=== PATIENT | male | born 1970 | race African-American/Black ===

== ENCOUNTER 2021-09-13 21:38 | Emergency (ER) | payer OTHER ==
[2021-09-13 22:26] VITALS: BP 171/117
[2021-09-14] MEDS ORDERED: TETANUS,DIPH,PERTUSS(ACELL) VACCINE 0.5 ML SYRINGE IM ONE (04:33)
[2021-09-14] MEDS ORDERED: ACETAMINOPHEN 325 MG TAB PO ONE (04:33)
[2021-09-14] MEDS ORDERED: IBUPROFEN 600 MG TAB PO ONE (04:33)
[2021-09-14] MEDS ORDERED: LIDOCAINE (1%) 10 MG/1 ML VIAL 20 ML MDV INFILTRATI ONE (04:33)
--- NOTE | 2021-09-14 05:05 | Emergency Department Report ---
- General Chief Complaint: Wound/Laceration Stated Complaint: CUT ON NECK Source: patient Mode of arrival: Ambulatory Limitations: No Limitations - History of Present Illness Initial Comments: Patient is a 51-year-old [place] male with no past medical history who presents to the ED with complaint of acute onset persistent painful bleeding left lateral neck area after a sharp metallic object that he was working on hit him on the left lateral neck causing a puncture wound on the left lateral neck about 6 hours ago. Patient states that he is not up-to-date with his tetanus vaccinations. Patient states that the bleeding is well controlled at this time. Patient denies head injury, chest pain or shortness of breath, loss of consciousness, nausea and vomiting, change in vision, headache, numbness and tingling or weakness of upper and lower extremities bilaterally. -: hour(s) (6) Location: neck (left lateral neck laceration) Place: work Patient Tetanus UTD: No (Even during this visit) Context: accidental, sharp object use Associated Symptoms: pain. denies: loss of feeling/numbness, suspect foreign body present, unable to move injured part, weakness followed by dizziness, nausea/vomiting, fever - Related Data Previous Rx's Medication Instructions Recorded Last Taken Type Ibuprofen [Motrin] 600 mg PO Q8H PRN #30 tablet 09/14/21 Unknown Rx cephALEXin [Keflex] 500 mg PO Q8HR #30 cap 09/14/21 Unknown Rx Allergies Allergy/AdvReac Type Severity Reaction Status Date / Time No Known Allergies Allergy Verified 09/13/21 22:28 ED Review of Systems ROS: Stated complaint: CUT ON NECK Other details as noted in HPI Constitutional: denies: chills, fever Eyes: denies: eye pain, eye discharge, vision change ENT: denies: ear pain, throat pain Respiratory: denies: cough, shortness of breath, wheezing Cardiovascular: denies: chest pain, palpitations Endocrine: no symptoms reported Gastrointestinal: denies: abdominal pain, nausea, diarrhea Genitourinary: denies: urgency, dysuria Musculoskeletal: arthralgia (left lateral neck pain due to a bleeding laceration wound), myalgia. denies: back pain, joint swelling Skin: other (left lateral neck laceration wound). denies: rash, lesions Neurological: denies: headache, weakness, paresthesias Psychiatric: denies: anxiety, depression Hematological/Lymphatic: denies: easy bleeding, easy bruising ED Past Medical Hx - Medications Home Medications: Home Medications Medication Instructions Recorded Confirmed Last Taken Type Ibuprofen [Motrin] 600 mg PO Q8H PRN #30 tablet 09/14/21 Unknown Rx cephALEXin [Keflex] 500 mg PO Q8HR #30 cap 09/14/21 Unknown Rx ED Physical Exam - General Limitations: No Limitations General appearance: alert, in no apparent distress - Head Head exam: Present: atraumatic, normocephalic, normal inspection - Eye Eye exam: Present: normal appearance, PERRL, EOMI Pupils: Present: normal accommodation - ENT ENT exam: Present: normal exam, normal orophraynx, mucous membranes moist, TM's normal bilaterally, normal external ear exam - Neck Neck exam: Present: normal inspection, tenderness (palpable mild left lateral neck tenderness due to a bleeding 4 cm laceration wound), full ROM - Respiratory Respiratory exam: Present: normal lung sounds bilaterally. Absent: respiratory distress, wheezes, rhonchi, chest wall tenderness, accessory muscle use, decreased breath sounds - Cardiovascular Cardiovascular Exam: Present: regular rate, normal rhythm, normal heart sounds. Absent: systolic murmur, diastolic murmur, rubs, gallop - GI/Abdominal GI/Abdominal exam: Present: soft, normal bowel sounds. Absent: tenderness, guarding, rebound, hyperactive bowel sounds, hypoactive bowel sounds, organomegaly, mass - Extremities Exam Extremities exam: Present: normal inspection, full ROM, normal capillary refill. Absent: tenderness - Back Exam Back exam: Present: normal inspection, full ROM. Absent: tenderness, CVA tenderness (R), CVA tenderness (L), muscle spasm, paraspinal tenderness, vertebral tenderness - Neurological Exam Neurological exam: Present: alert, oriented X3, CN II-XII intact, normal gait, reflexes normal - Psychiatric Psychiatric exam: Present: normal affect, normal mood - Skin Skin exam: Present: warm, dry, intact, normal color, other (bleeding 4 cm left lateral neck laceration wound). Absent: rash ED Course Vital Signs 09/13/21 22:00 Temperature 98.1 F Pulse Rate 78 Respiratory 20 Rate Blood Pressure 171/117 O2 Sat by Pulse 99 Oximetry - Laceration /Wound Repair Left Lateral Neck Wound Location: neck (left lateral) Wound Length (cm): 4 Wound's Depth, Shape: superficial, linear Wound Explored: contaminated Irrigated w/ Saline (ccs): 300 Betadine Prep?: Yes Anesthesia: 1% Lidocaine Volume Anesthetic (ccs): 5 Wound Debrided: extensive Wound Repaired With: sutures Suture Size/Type: 3:0, proline Number of Sutures: 7 Layer Closure?: No Sterile Dressing Applied?: No Progress: The wound was cleaned extensively and cleaned and debrided with normal saline and Betadine solution. 1% lidocaine solution was used as a local anesthetic. When anesthesia was fully achieved, the wound was sutured per protocol and the patient tolerated the procedure well. The wound was then dressed with a sterile 4 x 4 gauze and was discharged home on antibiotics and pain medications and advised to return to the ED in 12 to 14 days for suture removal. Patient was otherwise advised return to the ED immediately if symptoms get worse ED Medical Decision Making - Medical Decision Making This is a 51-year-old [place] male with no past medical history who presents to the ED with complaint of acute onset persistent painful bleeding left lateral neck area after a sharp metallic object that he was working on hit him on the left lateral neck causing a puncture wound on the left lateral neck about 6 hours ago. Patient states that he is not up-to-date with his tetanus vaccinations. Patient states that the bleeding is well controlled at this time. In the ED, patient is alert and oriented x3 and is not in any distress. Patient was treated for pain in the ED. Patient also received booster tetanus vaccination. The wound was extensively debrided with normal saline and sutured per protocol. Patient tolerated the procedure well. Wound was then dressed appropriately and the patient was discharged home on pain medication and prophylactic antibiotics advised to return to the ED immediately if symptoms get worse. Patient was also advised to follow-up with his primary care physician in 7 to 10 days for reevaluation. Patient was also advised return to the ED due to his primary care physician in 12 to 14 days for suture removal. - Differential Diagnosis Neck laceration; puncture wound on the neck: Critical care attestation.: If time is entered above; I have spent that time in minutes in the direct care of this critically ill patient, excluding procedure time. ED Disposition Clinical Impression: Laceration without foreign body of unspecified part of neck, initial encounter Disposition: HOME / SELF CARE / HOMELESS Is pt being admited?: No Does the pt Need Aspirin: No Condition: Stable Instructions: Neck Contusion, [id number], Sutured Wound Care, [id number], Sutures, [place], or Adhesive Wound Closure, [id number] Additional Instructions: Take medication with food, drink plenty of fluids and follow-up with your primary care physician in 7 to 10 days for reevaluation. Return to the ED immediately if symptoms get worse. Otherwise return to the ED or to your primary care physician in 12 to 14 days for suture removal. Prescriptions: cephALEXin [Keflex] 500 mg PO Q8HR #30 cap Ibuprofen [Motrin] 600 mg PO Q8H PRN #30 tablet PRN Reason: Pain Referrals: [facility] [Provider Group] - 7-10 days Forms: Work/School Release Form(ED) Time of Disposition: 05:13 Print Language: NEPALI
== END 2021-09-14 05:56 | disposition home or self-care (01) ==
LOC: ED 21:38
DX: S11.91XA Laceration without foreign body of unspecified part of neck, initial encounter (principal); X58.XXXA Exposure to other specified factors, initial encounter; Y93.89 Activity, other specified; Y92.89 Other specified places as the place of occurrence of the external cause; Y99.8 Other external cause status
CPT/HCPCS: 90471; 90715; 99282